=== PATIENT | female | born 1930 | race American Indian/Alaskan Native ===

== ENCOUNTER 2018-06-04 07:58 | Emergency (ER) | payer MEDICARE, OTHER ==
[2018-06-04 07:59] VITALS: BMI 31.1
[2018-06-04 08:10] VITALS: RESP 18; TEMP 97.8
[2018-06-04 08:21] VITALS: PULSE 68; O2SAT 100
[2018-06-04 08:32] VITALS: BP 125/96
--- NOTE | 2018-06-04 08:41 | C.PDOC ---
History Of Present Illness 87 year old female presents to ED for evaluation of itchy rash since 06/02/18. Notes that rash initially started on the right elbow and spread to her right shoulder and chest. Also reports itchiness to left foot but denies any rash there. Denies new meds, new food, difficulty breathing or swallowing, tongue/ lip swelling, or fever. (+) h/o chicken pox. No known sick contacts. Time Seen by Provider: 06/04/18 08:08 Chief Complaint (Nursing): Abnormal Skin Integrity History Per: Patient History/Exam Limitations: no limitations Onset/Duration Of Symptoms: Days Current Symptoms Are (Timing): Still Present Past Medical History Reviewed: Historical Data, Nursing Documentation, Vital Signs Vital Signs: Last Vital Signs Temp 97.8 F 06/04/18 08:32 Pulse 68 06/04/18 08:32 Resp 18 06/04/18 08:32 BP 125/96 H 06/04/18 08:32 Pulse Ox 100 06/04/18 09:19 - Medical History PMH: Diabetes, Gall Bladder Disease, HTN, Hypercholesterolemia, Peripheral Edema (SOMETIMES) Denies: Atrial Fibrillation, CHF, Chronic Kidney Disease Surgical History: Cholecystectomy - [facility] Procedures BREAST DX PROCEDURE NEC (07/02/14) DX ULTRASOUND-THORAX NEC (07/02/14) EXCISE AXILLARY NODE (08/13/14) LYMPHATIC SYSTEM SCAN (08/13/14) PERCUTAN NEEDLE BIOPSY OF BREAST (07/02/14) SUBTOTAL MASTECTOMY (08/13/14) Family History: States: Unknown Family Hx - Social History Hx Tobacco Use: No Hx Alcohol Use: No Hx Substance Use: No - Immunization History Hx Tetanus Toxoid Vaccination: Yes Hx Influenza Vaccination: Yes (08/2014) Hx Pneumococcal Vaccination: Yes (2010) Review Of Systems Except As Marked, All Systems Reviewed And Found Negative. Constitutional: Negative for: Fever, Chills Cardiovascular: Negative for: Chest Pain Respiratory: Negative for: Cough, Shortness of Breath Skin: Positive for: Rash Neurological: Negative for: Headache Physical Exam - Physical Exam Appears: Non-toxic, No Acute Distress Skin: Warm, Dry, Rash ((+)papules on a erythematous base to right arm, right shoulder and right chest wall; no crossing mildline) Head: Atraumatic, Normacephalic Eye(s): bilateral: Normal Inspection, EOMI Nose: Normal Oral Mucosa: Moist Tongue: Normal Appearing, No Swelling Lips: Normal Appearing, No Swelling Throat: Normal Neck: Normal ROM, Supple Chest: Symmetrical Cardiovascular: Rhythm Regular Respiratory: Normal Breath Sounds, No Rales, No Rhonchi, No Wheezing Gastrointestinal/Abdominal: Soft, No Tenderness Extremity: Normal ROM Neurological/Psych: Oriented x3, Normal Speech ED Course And Treatment O2 Sat by Pulse Oximetry: 100 (RA) Pulse Ox Interpretation: Normal Progress Note: Discussed possible ddx, the this time rash is consistent with shingles and will be treated as such. Pt was instructed to take Anti-histamine and antiviral for the rash. Pt is being discharged home with instructions to follow up with PMD in 1-2 days . Disposition - Disposition Disposition: HOME/ ROUTINE Disposition Time: 08:38 Condition: STABLE Additional Instructions: Take benadryl for any itching. Avoid any allergens. Return to ER if symptoms persist or worsen. Prescriptions: Acyclovir [Zovirax] 800 mg PO 5XD #50 tab Instructions: Shingles (DC) Forms: [employer] (Yoruba) - Clinical Impression Clinical Impression: Herpes zoster - PA / [employer] / Resident Statement MD/DO has reviewed & agrees with the documentation as recorded. - Scribe Statement The provider has reviewed the documentation as recorded by the Scribe [email or web address] All medical record entries made by the Scribe were at my direction and personally dictated by me. I have reviewed the chart and agree that the record accurately reflects my personal performance of the history, physical exam, medical decision making, and the department course for this patient. I have also personally directed, reviewed, and agree with the discharge instructions and disposition.
== END 2018-06-04 08:48 | disposition home or self-care (01) ==
LOC: C.ER 07:58
DX: B02.9 Zoster without complications (principal)